=== PATIENT | female | born 1945 | race Caucasian/White ===

== ENCOUNTER → 2017-09-15 18:52 | Outpatient (CLI) | payer MEDICARE, BC | END | disposition home or self-care (01) | LOC: D.MAMMO 16:00 | DX: Z12.31 Encounter for screening mammogram for malignant neoplasm of breast (principal) ==

== ENCOUNTER → 2017-10-20 18:30 | Outpatient (CLI) | payer MEDICARE, BC | END | disposition home or self-care (01) | LOC: D.MAMMO 10-06 10:30 → D.US 10-06 11:30 → D.MAMMO 09:30 | DX: R92.8 Other abnormal and inconclusive findings on diagnostic imaging of breast (principal) ==

== ENCOUNTER 2017-12-09 05:50 | Day surgery (SDC) | payer MEDICARE, BC ==
[2017-12-08 09:37] LABS: CALC OSMOLALITY 284 mosm/kg (275-300); CALCIUM 9.3 mg/dL (8.5-10.1); CHLORIDE - SERUM 105 mmol/L (98-107); CREATININE - SERUM 0.7 mg/dL (0.6-1.3); GLUCOSE 90 mg/dL (74-106); POTASSIUM - SERUM 3.9 mmol/L (3.5-5.1); SODIUM 143 mmol/L (136-145); UREA NITROGEN 13 mg/dL (7-18); eGFR NON AFRICAN AMERICAN 87 mL/min (90-120)
[2017-12-08 09:54] LABS: BASOPHILS 0.4 % (0-2); EOSINOPHILS 7.3 % (0-7); HEMATOCRIT 41.6 % (36.0-48.0); HEMOGLOBIN 14.4 g/dL (12-16); LYMPHOCYTES 29.7 % (15-50); MCH 32.9 pg (26.0-34.0); MCHC 34.6 g/dL (31.0-37.0); MEAN PLATELET VOLUME 11.6 fL (7.4-10.4); MONOCYTES 6.6 % (2-11); PLATELET COUNT 194 10x3/uL (130-400); RBC 4.38 10x6/uL (4.00-5.40); RDW 12.7 % (11.5-14.5); WBC 4.5 10x3/uL (4.8-10.8)
[~2017-12-09] VITALS: Ht 165.1 cm; Wt 62.1 kg
--- NOTE | ~2017-12-09 | OP ---
PATIENT NAME: ESPERANZA KIM MEDICAL RECORD: [id number] :43 LOCATION:D.OPS ADMISSION DATE: SURGEON: YONAS TOWNSEND MD DATE OF OPERATION: 12/09/2017 PREOPERATIVE DIAGNOSES: 1. Right breast mass. 2. Gastroesophageal reflux disease. 3. Hypothyroidism following radioactive iodine therapy. 4. Arthritis. POSTOPERATIVE DIAGNOSES: 1. Right breast mass. 2. Gastroesophageal reflux disease. 3. Hypothyroidism following radioactive iodine therapy. 4. Arthritis. PROCEDURE: Right lumpectomy. SURGEON: Yonas Townsend MD REPORT OF PROCEDURE: The patient's right breast was prepped and draped in sterile fashion. A semicircular incision was made at the edge of the medial aspect of the nipple areolar complex. Electrocautery was used to dissect through the subcutaneous tissues. The mass was easily palpable. We were able to dissect around the mass using electrocautery. During dissection, there was an explosion of the mass with drainage of this dark brown appearing fluid that did not appear to be purulent, making it consistent with the cyst. The cyst appeared to be completely excised at the conclusion of the case. The cyst and surrounding tissue were marked appropriately and sent off for permanent specimen. We irrigated out the wound with normal saline and care was taken to assure there was no sign of any bleeding present. The subcutaneous tissues were reapproximated with interrupted 3-0 Vicryl and the skin was closed with running subcutaneous 5-0 Monocryl. A total of 10 mL of 0.25% Marcaine plain was infused into the surrounding tissues and the wound was dressed appropriately. COMPLICATIONS: None. CONDITION: Stable. ANESTHESIA: General endotracheal and local. BLOOD LOSS: Minimal. TRANSINT:[id number] Voice Confirmation ID: [id number] DOCUMENT ID: [id number] YONAS TOWNSEND MD at 0916 CC: ALLEN FRIEND MD [id number] DICTATION DATE: 12/09/17 1009 [employer] PROGRAMMER ANALYST: 12/09/17 1018 [facility] 12/09/17 [id number] [place] [address]
[~2017-12-09 05:50] MED LIST: IMODIUM2 MG PO; LEVOTHYROXINE100 MCG PO; OMEPRAZOLE DR 20 MG; PROTONIX FOR OR40 MG PT; ZYRTEC10 MG PO
[2017-12-09 06:30] VITALS: BP 143/83; Ht 165.1 cm; Wt 62.1 kg
[2017-12-09] MEDS ORDERED: NORCO 10-325 TA1 TAB PO (10:04)
== END 2017-12-09 11:55 | disposition home or self-care (01) ==
LOC: D.OPS 05:50 → D.PAN 08:00 → D.OPS 08:00
PROVIDERS: Surgery
DX: N63.0 Unspecified lump in unspecified breast (principal)

== ENCOUNTER → 2018-04-07 09:36 | Outpatient (CLI) | payer MEDICARE, BC ==
[~2018-04-07 09:36] MED LIST changes: +NORCO 10-325 TA1 TAB PO
== END | disposition home or self-care (01) ==
LOC: D.CT 09:36
DX: J01.90 Acute sinusitis, unspecified (principal)